=== PATIENT | male | born 1995 | race Caucasian/White ===

== ENCOUNTER 2017-09-22 09:22 | Emergency (ER) | payer OTHER ==
[2017-09-22 09:26] VITALS: RESP 16
[2017-09-22] MEDS ORDERED: ONDANSETRON 4 MG/2 ML VIAL IVP ONE (09:35)
[2017-09-22] MEDS ORDERED: NS 1,000 ML IV ONE (09:35)
--- NOTE | 2017-09-22 09:42 | EDPHY ---
General Narrative: CHIEF COMPLAINT: Cough, nausea vomiting, body aches HISTORY OF PRESENT ILLNESS: Patient complains of sudden onset of cough, nausea vomiting, body aches, subjective fever, runny nose, sore throat. This all started fairly abruptly yesterday morning. No chest pain but he has been coughing. He has been vomiting repeatedly to the point that he has some blood tinged emesis. This is not start as bloody emesis. He has had no diarrhea constipation. No bloody stools. No abdominal pain but does have some epigastric discomfort when vomiting. Subjective fever. No headache. No neck pain or stiffness. No recent travel or surgery. No known sick contacts. No other associated complaints or modifying factors REVIEW OF SYSTEMS: Ten systems reviewed and are negative unless otherwise noted in the HPI PCP: None SPECIALISTS: None PAST MEDICAL HISTORY: None PAST SURGICAL HISTORY: Tonsillectomy as a child SOCIAL HISTORY: Occasional smoker. Occasional alcohol use. Works at a [employer] FAMILY HISTORY: Noncontributory EXAMINATION General Appearance: Alert, no distress Head: normocephalic, atraumatic Eyes: Pupils equal and round, no conjunctival pallor or injection ENT, Mouth: Mucous membranes moist. Minimal posterior erythema. The tonsils are symmetric and without exudate. The uvula is midline. The airway is widely patent. Neck: Normal inspection, supple, non-tender. Minimally tender cervical lymphadenopathy. No supraclavicular lymphadenopathy. Trachea midline. Supple nontender. Painless range of motion all planes with no meningeal signs. Respiratory: Lungs are clear to auscultation. No wheezing, rhonchi or crackles. No diminishment. No distress Cardiovascular: Regular rate and rhythm. No murmur Gastrointestinal: Abdomen is soft and nontender. No hepatosplenomegaly. No CVA tenderness. Neurological: A&O, nonfocal, normal steady gait. Skin: Warm and dry, no rash. No petechiae. No purpura. Extremities: Nontender, no pedal edema Psychiatric: Mood and affect normal DIFFERENTIAL DIAGNOSES: Including but not limited to influenza, viral illness, pneumonia, strep pharyngitis, viral pharyngitis, bronchitis, community-acquired pneumonia MDM: 9:35 a.m. Symptoms consistent with a likely influenza. Lungs are clear on auscultation. No meningeal signs. Throat appears to be more postnasal drip than strep pharyngitis. Abdominal exam is benign. Vital signs are stable. I have ordered influenza test, rapid strep test, IV fluid, laboratory studies. I do not feel he warrants exposed to radiation at this time with a chest x-ray as pneumonia is less likely. Plan for Toradol for his symptoms when I verify his kidney function. He is in no acute distress and resting comfortably at this time 10:30 a.m. Patient re-evaluated. Laboratory studies are negative thus far. Influenza pending. Pike pending. 11:30 a.m. Patient re-evaluated. Influenza and mono were also negative. He is in no acute distress and feeling significantly better after our treatment with IV fluid and antiemetic. Suspected this is likely a viral etiology. I do not feel he warrants any imaging or further testing at this time. He would like to be discharged home. I will discharge him home with short course of nausea medication and cough medicine. He is to follow up here in 1-2 days if no improvement or sooner if worsening. ED precautions for any worsening symptoms, headache, any neck pain or stiffness, chest pain. - History Smoking Status: Current some day smoker - Objective Vital Signs: Initial Vital Signs Temperature (C) 99.0 F 09/22/17 09:23 Heart Rate 96 09/22/17 09:23 Respiratory Rate 16 09/22/17 09:23 Blood Pressure 131/79 H 09/22/17 09:23 O2 Sat (%) 97 09/22/17 09:23 O2 Delivery Mode Room Air Allergies/Adverse Reactions: Penicillins Allergy (Intermediate, Verified 09/22/17 09:27) Hives cefprozil [From Cefzil] Allergy (Verified 09/22/17 09:27) Hives Home Medications: Medication Instructions Recorded Acetaminophen/Codeine 300/30Mg 1 each PO Q6 PRN #15 tab 09/22/17 [Tylenol #3 (*)] Ondansetron Odt [Zofran Odt 4 mg 4 mg PO Q6 PRN #12 tab 09/22/17 (*)] Promethazine HCl [Phenergan 25mg 25 mg PO Q8 PRN #12 tab 09/22/17 (*)] Laboratory Results: Laboratory Results 09/22/17 09:44 09/22/17 09:44 09/22/17 09/22/17 09/22/17 Unknown 09:45 09:44 WBC RBC Hgb Hct MCV MCH MCHC RDW Plt Count MPV Neut % (Auto) Lymph % (Auto) Pike % (Auto) Eos % (Auto) Baso % (Auto) Nucleat RBC Rel Count Absolute Neuts (auto) Absolute Lymphs (auto) Absolute Monos (auto) Absolute Eos (auto) Absolute Basos (auto) Absolute Nucleated RBC Immature Gran % Immature Gran # Sodium 139 mEq/L mEq/L (134-144) Potassium 3.7 mEq/L mEq/L (3.5-5.2) Chloride 101 mEq/L mEq/L (97-110) Carbon Dioxide 23 mEq/l mEq/l (22-31) Anion Gap 15 mEq/L mEq/L (8-16) BUN 12 mg/dL mg/dL (7-23) Creatinine 1.1 mg/dL mg/dL (0.7-1.3) Estimated GFR > 60 Glucose 100 mg/dL mg/dL (70-100) Calcium 9.2 mg/dL mg/dL (8.5-10.4) Total Bilirubin 0.7 mg/dL mg/dL (0.1-1.4) Conjugated Bilirubin 0.1 mg/dL mg/dL (0.0-0.5) Unconjugated Bilirubin 0.6 mg/dL mg/dL (0.0-1.1) AST 25 IU/L IU/L (17-59) ALT 37 IU/L IU/L (21-72) Alkaline Phosphatase 55 IU/L IU/L (38-126) Total Protein 7.0 g/dL g/dL (6.3-8.2) Albumin 4.4 g/dL g/dL (3.5-5.0) Lipase 45 IU/L IU/L (23-300) Nasal Influenza A PCR Nasal Influenza B PCR Monoscreen NEGATIVE (NEGATIVE) Group A Strep Screen Group A Strep DNA Pending 09/22/17 09/22/17 09/22/17 09:44 09:40 09:40 WBC 7.25 10^3/uL 10^3/uL (3.80-9.50) RBC 5.09 10^6/uL 10^6/uL (4.40-6.38) Hgb 16.7 g/dL g/dL (13.7-17.5) Hct 47.1 % % (40.0-51.0) MCV 92.5 fL fL (81.5-99.8) MCH 32.8 pg pg (27.9-34.1) MCHC 35.5 g/dL g/dL (32.4-36.7) RDW 12.2 % % (11.5-15.2) Plt Count 241 10^3/uL 10^3/uL (150-400) MPV 9.5 fL fL (8.7-11.7) Neut % (Auto) 72.6 % % (39.3-74.2) Lymph % (Auto) 12.1 % L % (15.0-45.0) Pike % (Auto) 13.9 % H % (4.5-13.0) Eos % (Auto) 0.7 % % (0.6-7.6) Baso % (Auto) 0.4 % % (0.3-1.7) Nucleat RBC Rel Count 0.0 % % (0.0-0.2) Absolute Neuts (auto) 5.26 10^3/uL 10^3/uL (1.70-6.50) Absolute Lymphs (auto) 0.88 10^3/uL L 10^3/uL (1.00-3.00) Absolute Monos (auto) 1.01 10^3/uL H 10^3/uL (0.30-0.80) Absolute Eos (auto) 0.05 10^3/uL 10^3/uL (0.03-0.40) Absolute Basos (auto) 0.03 10^3/uL 10^3/uL (0.02-0.10) Absolute Nucleated RBC 0.00 10^3/uL 10^3/uL (0-0.01) Immature Gran % 0.3 % % (0.0-1.1) Immature Gran # 0.02 10^3/uL 10^3/uL (0.00-0.10) Sodium Potassium Chloride Carbon Dioxide Anion Gap BUN Creatinine Estimated GFR Glucose Calcium Total Bilirubin Conjugated Bilirubin Unconjugated Bilirubin AST ALT Alkaline Phosphatase Total Protein Albumin Lipase Nasal Influenza A PCR NEGATIVE FOR FLU A (NEGATIVE) Nasal Influenza B PCR NEGATIVE FOR FLU B (NEGATIVE) Monoscreen Group A Strep Screen NEGATIVE (NEGATIVE) Group A Strep DNA Medications Given: Discontinued Medications Sodium Chloride (Ns) 1,000 mls @ 0 mls/hr IV EDNOW ONE; Wide Open PRN Reason: Protocol Stop: 09/22/17 09:36 Last Admin: 09/22/17 09:47 Dose: 1,000 mls Ketorolac Tromethamine (Toradol) 30 mg IVP EDNOW ONE Stop: 09/22/17 10:11 Last Admin: 09/22/17 10:13 Dose: 30 mg Ondansetron HCl (Zofran) 4 mg IVP EDNOW ONE Stop: 09/22/17 09:36 Last Admin: 09/22/17 09:47 Dose: 4 mg Departure - Departure Disposition: Home, Routine, Self-Care Clinical Impression: Nausea & vomiting Qualifiers: Vomiting type: unspecified Vomiting Intractability: non-intractable Qualified Code(s): R11.2 - Nausea with vomiting, unspecified Condition: Good Instructions: Influenza (ED), Acute Nausea and Vomiting (ED) Additional Instructions: 1. Ibuprofen 600 mg every 8 hours for 7 days and stop 2. Tylenol 3 as prescribed as needed for cough and body aches 3. Nausea medication prescriptions as needed as discussed 4. ED precautions as discussed Referrals: NONE *PRIMARY CARE P,. [Primary Care Provider] - As per Instructions Onesimo Morton MD [[facility] [place] Primary Care Provider] - As per Instructions Stand Alone Forms: Airline Excuse, Work Excuse Prescriptions: Acetaminophen/Codeine 300/30Mg [Tylenol #3 (*)] 1 each PO Q6 PRN #15 tab PRN Reason: Pain, Mild Ondansetron Odt [Zofran Odt 4 mg (*)] 4 mg PO Q6 PRN #12 tab PRN Reason: Nausea/Vomiting, Use 1st Promethazine HCl [Phenergan 25mg (*)] 25 mg PO Q8 PRN #12 tab PRN Reason: Nausea/Vomiting, Use 1st
[2017-09-22 10:02] LABS: % IMMATURE GRANULYOCYTES 0.3 % (0.0-1.1); ABSOLUTE IMMATURE GRANULOCYTES 0.02 10^3/uL (0.00-0.10); ADD DIFF? NO; ADD MORPH? NO; ADD SCAN? NO; ATYPICAL LYMPHOCYTE FLAG 40 (0-99); FRAGMENT RBC FLAG 0 (0-99); HEMATOCRIT 47.1 % (40.0-51.0); HEMOGLOBIN 16.7 g/dL (13.7-17.5); LEFT SHIFT FLG 10 (0-99); LIPEMIA HEMOLYSIS FLAG 90 (0-99); MEAN CELL HEMOGLOBIN 32.8 pg (27.9-34.1); MEAN CELL HEMOGLOBIN CONCENTR. 35.5 g/dL (32.4-36.7); MEAN CELL VOLUME 92.5 fL (81.5-99.8); MEAN PLATELET VOLUME 9.5 fL (8.7-11.7); PLATELET CLUMPS FLAG 0 (0-99); PLATELET COUNT 241 10^3/uL (150-400); RED BLOOD CELL COUNT 5.09 10^6/uL (4.40-6.38); RED CELL DISTRIBUTION WIDTH 12.2 % (11.5-15.2)
[2017-09-22 10:06] LABS: ALANINE AMINOTRANSFERASE 37 IU/L (21-72); ALBUMIN 4.4 g/dL (3.5-5.0); ALKALINE PHOSPHATASE 55 IU/L (38-126); ANION GAP 15 mEq/L (8-16); ASPARTATE AMINOTRANSFERASE 25 IU/L (17-59); BILIRUBIN,TOTAL 0.7 mg/dL (0.1-1.4); BILIRUBIN-CONJUGATED 0.1 mg/dL (0.0-0.5); BILIRUBIN-UNCONJUGATED 0.6 mg/dL (0.0-1.1); CALCIUM 9.2 mg/dL (8.5-10.4); CARBON DIOXIDE 23 mEq/l (22-31); CHLORIDE 101 mEq/L (97-110); CREATININE 1.1 mg/dL (0.7-1.3); GLOMERULAR FILTRATION RATE > 60; GLUCOSE 100 mg/dL (70-100); POTASSIUM 3.7 mEq/L (3.5-5.2); SODIUM 139 mEq/L (134-144)
[2017-09-22] MEDS ORDERED: KETOROLAC 30 MG/1 ML SDV IVP ONE (10:10)
[2017-09-22 11:54] VITALS: BP 135/70; PULSE 78; TEMP 98.6; O2SAT 98
== END 2017-09-22 11:55 | disposition home or self-care (01) ==
PROC: 3E0337Z Introduction of Electrolytic and Water Balance Substance into Peripheral Vein, Percutaneous Approach (ICD-10-PCS; principal; 2017-09-22)
DX: R11.2 Nausea with vomiting, unspecified (principal); F17.200 Nicotine dependence, unspecified, uncomplicated; E86.9 Volume depletion, unspecified
CPT/HCPCS: 96374; J1885; J2405